=== PATIENT | male | born 1960 | race Caucasian/White ===

== ENCOUNTER → 2021-04-21 | Outpatient (CLI) | payer BC ==
--- NOTE | 2021-04-21 11:37 | EST ---
EXERCISE STRESS AGE: 60 SEX: M HT: 6' WT: 225 lbs. PROTOCOL: Cardolite Huseyin STAGE: 4 DURATION OF EXERCISE: 12:00 HEART RATE REST: 72 BLOOD PRESSURE REST: 155/97 MAXIMUM HEART RATE ACHIEVED: 162 MAXIMUM BLOOD PRESSURE: 205/95 85% MPHR: 135 100% MPHR: 159 METS: 12.3 INDICATIONS: Atypical chest pain CLINICAL INFORMATION: Baseline EKG revealed normal sinus rhythm without significant ST-T changes. There was borderline voltage criteria for LVH and leftward axis. Patient's resting heart rate was 72 beats per minute and blood pressure was 155/97. Patient walked on a standard Huseyin protocol for 12 minutes and achieved a maximal heart rate of 161 beats per minute, which is well above 85% of predicted maximal. His peak blood pressure was 209/95. EKG was unremarkable for ischemia. Patient did not have angina. There was no arrhythmia. By EKG criteria, this is a negative stress test with excellent exercise capacity. FINAL IMPRESSION: Excellent exercise capacity with a negative stress test by EKG criteria. MMODL / IJN: [id number] /
--- NOTE | 2021-04-21 12:12 | NM ---
EXAMINATION TYPE: NM stress cardiolite complete DATE OF EXAM: 04/21/2021 COMPARISON: NONE HISTORY: R00.2 palpitations R07.9 atypical chest pain TECHNIQUE: After the intravenous administration of 9.6 mCi Tc 99m Sestamibi - Rest images obtained 4 5 minutes post injection. The patient exercised using a HELEN protocol and 1 minute prior to peak e xercise was injected with 26.1 mCi Tc 99m Sestamibi - Stress images obtained 10 minutes post injectio n. FINDINGS: Targeted heart rate was achieved during performance of the study. Review of stress and rest SPECT mandi ges demonstrates no distinct stress related perfusion abnormality. Fixed defect noted inferolateral wall. Gated analysis shows normal wall motion with an estimated left ventricular ejection fraction of 58 %. IMPRESSION: No scintigraphic evidence for reversible ischemia
== END | disposition home or self-care (01) ==
LOC: RADNMMAIN 08:14
PROVIDERS: ATTEND Family Medicine
DX: R00.2 Palpitations (principal); R07.9 Chest pain, unspecified
CPT/HCPCS: 93017; 78452; A9500

== ENCOUNTER 2022-04-28 09:18 | Day surgery (SDC) | payer BC ==
[2022-04-25 12:54] VITALS: BMI 28.5
[~2022-04-28 09:18] MED LIST: LACTATED RINGERS 1,000 ML IV SCH; LIDOCAINE 1% (10MG/ML) FOR IV START INTRADERMA PRN
[2022-04-28 09:41] VITALS: TEMP 97.1
--- NOTE | 2022-04-28 10:15 | P.GSHP ---
History of Present Illness H&P Date: 04/28/22 Chief Complaint: Screening colonoscopy This a 61-year-old male presents today for screening colonoscopy. Patient denies any significant GI complaints. Past Medical History Past Medical History: Hypertension History of Any Multi-Drug Resistant Organisms: None Reported Additional Past Surgical History / Comment(s): colonoscopy Past Anesthesia/Blood Transfusion Reactions: No Reported Reaction Past Psychological History: No Psychological Hx Reported Smoking Status: Never smoker Past Alcohol Use History: Occasional Past Drug Use History: None Reported - Past Family History Father Family Medical History: Cancer Additional Family Medical History / Comment(s): kidney cancer with mets to the brain Medications and Allergies Home Medications Medication Instructions Recorded Confirmed Type Simvastatin [Zocor] 20 mg PO HS 04/25/22 04/28/22 History lisinopriL [Zestril] 10 mg PO HS 04/25/22 04/28/22 History Allergies Allergy/AdvReac Type Severity Reaction Status Date / Time No Known Allergies Allergy Verified 04/28/22 09:37 Surgical - Exam Vital Signs Temp Pulse Resp BP Pulse Ox 97.1 F L 92 14 166/88 98 04/28/22 09:40 04/28/22 09:40 04/28/22 09:40 04/28/22 09:40 04/28/22 09:40 - General well developed, well nourished, no distress - Eyes PERRL - ENT normal pinna - Neck no masses - Respiratory normal expansion - Cardiovascular Rhythm: regular - Abdomen Abdomen: soft, non tender Assessment and Plan Assessment: We'll perform screening colonoscopy
[2022-04-28] MEDS ORDERED: PROPOFOL 10 MG/ML 20 ML VIAL IV ONE (10:16)
[2022-04-28] MEDS ORDERED: LIDOCAINE 2% INJ 20 MG/ML (2 ML VIAL) ONE (10:16)
--- NOTE | 2022-04-28 10:31 | P.OP ---
Date of Procedure: 04/28/22 Preoperative Diagnosis: Screening colonoscopy Postoperative Diagnosis: Normal colon Procedure(s) Performed: Colonoscopy Anesthesia: MAC Surgeon: Laron Smith Pathology: none sent Condition: stable Disposition: PACU Description of Procedure: PROCEDURE: The patient was placed on the endoscopy table in the lateral position. Digital rectal examination was performed which revealed no abnormalities. The prostate was symmetrical without nodules. Flexible colonoscope was then placed in the patient's anus and passed throughout the entire colon. The ileocecal valve was visualized. The cecum, ascending, transverse, descending and sigmoid colon were normal. The rectum was normal as well. There were no masses, polyps or diverticula noted in the entire colon. SUMMARY OF FINDINGS: Normal colonoscopy.
[2022-04-28] MEDS ORDERED: IV FLUID CONTINUATION 450 ML IV ONE (10:33)
[2022-04-28 10:59] VITALS: RESP 20
[2022-04-28 11:00] VITALS: BP 144/70; PULSE 77
== END 2022-04-28 11:03 | disposition home or self-care (01) ==
LOC: ORWHC2ENDO 09:18
PROVIDERS: ATTEND Surgery
DX: Z12.11 Encounter for screening for malignant neoplasm of colon (principal); I10 Essential (primary) hypertension; E78.5 Hyperlipidemia, unspecified; F10.20 Alcohol dependence, uncomplicated; Z85.528 Personal history of other malignant neoplasm of kidney; Z80.8 Family history of malignant neoplasm of other organs or systems; Z79.899 Other long term (current) drug therapy
CPT/HCPCS: 45378; J2704; J2001

== ENCOUNTER → 2023-06-14 | Outpatient (CLI) | payer BC ==
--- NOTE | 2023-06-16 15:31 | CT ---
EXAMINATION TYPE: CT soft tissue neck w con DATE OF EXAM: 06/14/2023 COMPARISON: None HISTORY: lump to right side of neck CT DLP: 579 mGycm CONTRAST: Patient injected with 100 mL of Isovue 300. TECHNIQUE: Axial images at 3 mm thick sections. Reconstructed images in the coronal plane and sagitt al plane are reviewed. FINDINGS: Limited CT sections are obtained the lung apices. The lung apices appear clear. CT neck: The torus tubarius and fossa of Rosenmuller are normal. Correspondence Analyst spaces are normal. Para nasal sinuses and mastoid air cells are clear. Parotid glands appear normal and symmetrical. Submandibular glands, are normal. Parapharyngeal spac es are normal. No suspicious adenopathy is evident. No significant shotty lymphadenopathy. The hypopharynx appears within normal limits. Vocal cord level appear symmetrical. Epiglottis appears normal. Thyroid as visualized is normal. Osseous structures are normal. A BB walton the right neck at the level of the submandibular gland. No underlying radiographic abnorma lity is evident. IMPRESSION: 1. No suspicious abnormalities to account for localized swelling.
== END | disposition home or self-care (01) ==
LOC: RADCTMAIN 11:33
PROVIDERS: ATTEND Otolaryngology
DX: R22.1 Localized swelling, mass and lump, neck (principal)
CPT/HCPCS: 70491; Q9967